=== PATIENT | male | born 1940 | race Caucasian/White ===

== ENCOUNTER 2019-03-07 20:20 | Emergency (ER) | payer MEDICARE, BC ==
--- NOTE | 2019-03-07 20:58 | EDM.PDOC ---
ED HPI GENERAL MEDICAL PROBLEM - General Chief Complaint: Cardiovascular Problem Stated Complaint: DIZZY VOMITING Time Seen by Provider: 03/07/19 20:57 - History of Present Illness INITIAL COMMENTS - FREE TEXT/NARRATIVE: 79-year-old male presents emergency room with dizziness. This started about 11: 00 this morning he cannot define exactly what he was doing when starting turning his head from one way or the other doesn't seem to trigger it a lot of time looking to spotting scopes and this seems to be part of the irritation. If he asked off and rested for little bit the sensation would go away. He cannot be certain which side worse than right and the left. Patient has never been bothered by symptoms like this in the past. No significant coronary artery disease no prior history of stroke. - Related Data Allergies Allergy/AdvReac Type Severity Reaction Status Date / Time No Known Allergies Allergy Verified 03/07/19 20:28 ED ROS GENERAL - Review of Systems Review Of Systems: See Below HEENT: Reports: No Symptoms Respiratory: Reports: No Symptoms, Cough, Sputum Cardiovascular: Reports: No Symptoms, Palpitations Endocrine: Reports: No Symptoms, Polyuria GI/Abdominal: Reports: No Symptoms : Reports: No Symptoms, Urinary Retention Musculoskeletal: Reports: No Symptoms, Hand Pain, Muscle Pain Skin: Reports: No Symptoms, Dryness, Change in Color, Other Neurological: Reports: No Symptoms, Paresthesia Psychiatric: Reports: No Symptoms, Hallucinations, Other Hematologic/Lymphatic: Reports: No Symptoms, Other Immunologic: Reports: No Symptoms ED EXAM, GENERAL - Physical Exam Exam: See Below Exam Limited By: No Limitations General Appearance: Alert, No Apparent Distress Eye Exam: Bilateral Eye: EOMI, Normal Inspection Nose: No Blood Neck: Normal Inspection, Carotid Bruit, Limited Range of Motion, Lymphadenopathy (R), Tender Lateral Respiratory/Chest: No Respiratory Distress, Lungs Clear, Normal Breath Sounds Cardiovascular: Regular Rate, Rhythm, No Edema, No Gallop, No Murmur, JVD, Bradycardia, Tachycardia, Systolic Murmur GI/Abdominal: Normal Bowel Sounds, Soft, Non-Tender Rectal (Males) Exam: Normal Exam, Normal Rectal Tone, Prostate Normal, Prostate Nodule Back Exam: Normal Inspection, Full Range of Motion, CVA Tenderness (L) Extremities: Normal Inspection, Normal Range of Motion, Non-Tender Neurological: Alert, Oriented, CN II-XII Intact, Normal Cognition, Normal Gait, No Motor/Sensory Deficits, Disoriented Psychiatric: Normal Affect, Normal Mood Lymphatic: No Adenopathy Course - Vital Signs Last Recorded V/S: Last Vital Signs Temp 36.8 C 03/07/19 20:26 Pulse 73 03/07/19 20:26 Resp 19 03/07/19 20:26 BP 188/92 H 03/07/19 20:26 Pulse Ox 93 L 03/07/19 20:26 - Orders/Labs/Meds Orders: Active Orders 24 hr Category Date Time Status EKG Documentation Completion [RC] ASDIRECTED Care 03/07/19 20:50 Active Chest 1V Frontal [CR] Stat Exams 03/07/19 20:49 Taken EKG 12 Lead [EK] Stat Ther 03/07/19 20:49 Ordered Labs: Laboratory Tests 03/07/19 03/07/19 03/07/19 Range/Units 21:12 21:12 21:25 WBC 12.76 H (4.23-9.07) K/mm3 RBC 5.02 (4.63-6.08) M/mm3 Hgb 15.3 (13.7-17.5) gm/dl Hct 42.3 (40.1-51.0) % MCV 84.3 (79.0-92.2) fl MCH 30.5 (25.7-32.2) pg MCHC 36.2 H (32.2-35.5) g/dl RDW Std Deviation 36.7 (35.1-43.9) fL Plt Count 205 (163-337) K/mm3 MPV 9.7 (9.4-12.3) fl Neut % (Auto) 81.0 H (34.0-67.9) % Lymph % (Auto) 11.3 L (21.8-53.1) % [place] % (Auto) 6.0 (5.3-12.2) % Eos % (Auto) 1.3 (0.8-7.0) Baso % (Auto) 0.2 (0.1-1.2) % Neut # (Auto) 10.33 H (1.78-5.38) K/mm3 Lymph # (Auto) 1.44 (1.32-3.57) K/mm3 [place] # (Auto) 0.77 (0.30-0.82) K/mm3 Eos # (Auto) 0.16 (0.04-0.54) K/mm3 Baso # (Auto) 0.03 (0.01-0.08) K/mm3 Sodium 128 L (136-145) mEq/L Potassium 3.1 L (3.5-5.1) mEq/L Chloride 92 L (98-107) mEq/L Carbon Dioxide 28 (21-32) mEq/L Anion Gap 11.1 (5-15) BUN 16 (7-18) mg/dL Creatinine 1.3 (0.7-1.3) mg/dL Est Cr Clr Drug Dosing 46.83 mL/min Estimated GFR (MDRD) 53 (>60) mL/min BUN/Creatinine Ratio 12.3 L (14-18) Glucose 205 H (83-115) mg/dL Calcium 8.9 (8.5-10.1) mg/dL Total Bilirubin 0.5 (0.2-1.0) mg/dL AST 15 (15-37) U/L ALT 22 (16-63) U/L Alkaline Phosphatase 86 (46-116) U/L Troponin I < 0.017 (0.00-0.056) ng/mL Total Protein 7.2 (6.4-8.2) g/dl Albumin 3.9 (3.4-5.0) g/dl Globulin 3.3 gm/dL Albumin/Globulin Ratio 1.2 (1-2) Urine Color Light yellow (Yellow) Urine Appearance Clear (Clear) Urine pH 7.0 (5.0-8.0) Ur Specific [place] 1.020 (1.005-1.030) Urine Protein Negative (Negative) Urine Glucose (UA) Trace H (Negative) Urine Ketones Negative (Negative) Urine Occult Blood Negative (Negative) Urine Nitrite Negative (Negative) Urine Bilirubin Negative (Negative) Urine Urobilinogen 0.2 (0.2-1.0) Ur Leukocyte Esterase Negative (Negative) Urine RBC Not seen (0-5) /hpf Urine WBC Not seen (0-5) /hpf Ur Squamous Epith Cells Not seen (0-5) /hpf Urine Bacteria Occasional (FEW) /hpf Urine Mucus Rare (FEW) /hpf - Re-Assessments/Exams Free Text/Narrative Re-Assessment/Exam: 03/07/19 21:13 This probably represents benign positional vertigo 09/16/19 22:18 We discussed treatment as a possible cause to make this go on longer and they agree to hold off on treatment unless it's absolutely essential they can use meclizine for this which is [id number]. 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 Try meclizine to control the symptoms if absolutely essential. If not needed you will be better off in the long run not to use have used it. Have an audiology evaluation when he gets home. - My Orders Last 24 Hours: My Active Orders 03/07/19 20:49 Chest 1V Frontal [CR] Stat EKG 12 Lead [EK] Stat 03/07/19 20:50 EKG Documentation Completion [RC] ASDIRECTED - Assessment/Plan Last 24 Hours: My Active Orders 03/07/19 20:49 Chest 1V Frontal [CR] Stat EKG 12 Lead [EK] Stat 03/07/19 20:50 EKG Documentation Completion [RC] ASDIRECTED
[2019-03-07] MEDS ORDERED: Potassium Chloride 20 MEQ Tab.ER PO ONE (22:27)
--- NOTE | 2019-03-08 10:16 | CR ---
Chest: Portable view of the chest was obtained. Comparison: No previous chest x-ray. Heart size and mediastinum are normal. Lungs are clear. Mild scoliosis is noted within the spine. Scattered endplate spurring is noted within the spine. Impression: 1. Spine findings which are incidental. Nothing acute is appreciated on portable chest x-ray. Diagnostic code #2
== END 2019-03-07 22:35 | disposition home or self-care (01) ==
LOC: JD.ED 20:20
DX: R42 Dizziness and giddiness (principal)
CPT/HCPCS: 36415; 71045; 80053; 81001; 84484; 85025; 93005; 99284; A9270